=== PATIENT | female | born 1990 | race Caucasian/White ===

== ENCOUNTER 2016-10-01 22:20 | Emergency (ER) | payer SELFPAY ==
[2016-10-01] MEDS ORDERED: Naproxen 500 MG TAB ONE (23:59)
[2016-10-01] MEDS ORDERED: HYDROcodone/Acetaminophen 10/325 mg Tablet ONE (23:59)
[2016-10-02 00:07] LABS: Pregnancy Test - Urine (BHCG) Negative (Negative)
[2016-10-02 00:08] LABS: Bilirubin Negative (Negative); Blood, Urine Large (Negative); Clarity Turbid (Clear); Glucose, Urine (Dipstick) Negative (Negative); Leukocyte Small (Negative); Nitrite Positive (Negative); Pregu Control Background? CLEAR/WHITE (CLR/WHITE); Pregu Control Bar Appear? YES (CONTROL BAR); Protein, Urine (Dipstick) 100 mg/dL (Neg-Trace); RBC/HPF GREATER THAN 50-TNTC HPF (0-3); Specific Gravity 1.028 (1.002-1.036); Specific Gravity, Urine 1.028 (1.005-1.030); Transitional Epithelial 0-3 HPF (0-3); Urobilinogen 0.2 mg/dL (0.2-1.0); WBC/HPF 21-50 HPF (0-3)
[2016-10-02 00:09] LABS: Bacteria/HPF 4+ HPF (None Seen); Yeast-All Forms 2+ HPF (None Seen)
[2016-10-02] MEDS ORDERED: Sulfameth/Trimethoprim DS 800-160mg TAB ONE (00:19)
[2016-10-02] MEDS ORDERED: Phenazopyridine HCl 97.5 MG TABLET ONE (00:19)
== END 2016-10-02 00:21 | disposition home or self-care (01) ==
LOC: MADERS 22:20
DX: N39.0 Urinary tract infection, site not specified (principal); F17.210 Nicotine dependence, cigarettes, uncomplicated
CPT/HCPCS: 36415; 81001; 81025; 87077; 87086; 87186; 99283

== ENCOUNTER 2017-11-19 18:32 | Emergency (ER) | payer OTHER, SELFPAY ==
[2017-11-19 19:06] LABS: Bilirubin Negative (Negative); Blood, Urine Negative (Negative); Clarity Hazy (Clear); Glucose, Urine (Dipstick) Negative (Negative); Leukocyte Negative (Negative); Nitrite Positive (Negative); Protein, Urine (Dipstick) Negative (Neg-Trace); RBC/HPF 0-3 HPF (0-3); Specific Gravity, Urine 1.025 (1.005-1.030); Urobilinogen 0.2 mg/dL (0.2-1.0)
[2017-11-19 19:07] LABS: Bacteria/HPF 4+ HPF (None Seen); Pregnancy Test - Urine (BHCG) Negative (Negative); Pregu Control Background? CLEAR/WHITE (CLR/WHITE); Pregu Control Bar Appear? YES (CONTROL BAR); Specific Gravity 1.025 (1.002-1.036); WBC/HPF 0-3 HPF (0-3)
[2017-11-19 19:24] LABS: Wet Prep Clue Cells Clue Cells Absent (None Seen); Wet Prep Pathologist Review Spermatozoa Absent (None Seen); Wet Prep Spermatozoa 2nd Revie Agree with result (None Seen); Wet Prep Trichomonas Trichomonas Absent (None Seen)
[2017-11-21 23:07] LABS: Chlamydia by PCR DETECTED (NotDetected); GC by PCR Not Detected (NotDetected)
== END 2017-11-19 19:46 | disposition home or self-care (01) ==
LOC: MADERS 18:32
DX: N89.8 Other specified noninflammatory disorders of vagina (principal); N39.0 Urinary tract infection, site not specified; Z87.891 Personal history of nicotine dependence
CPT/HCPCS: 81003; 81015; 81025; 87077; 87086; 87186; 87210; 87491; 87591; 99283

== ENCOUNTER 2017-12-15 18:57 | Emergency (ER) | payer SELFPAY ==
[2017-12-15 19:16] LABS: Bilirubin Negative (Negative); Blood, Urine Negative (Negative); Clarity Hazy (Clear); Glucose, Urine (Dipstick) Negative (Negative); Leukocyte Negative (Negative); Nitrite Negative (Negative); Protein, Urine (Dipstick) Negative (Neg-Trace); Specific Gravity, Urine 1.026 (1.002-1.036); Urobilinogen 0.2 mg/dL (0.2-1.0)
[2017-12-15 19:17] LABS: Pregnancy Test - Urine (BHCG) Negative (Negative); Pregu Control Background? CLEAR/WHITE (CLR/WHITE); Pregu Control Bar Appear? YES (CONTROL BAR); Specific Gravity 1.026 (1.002-1.036)
[2017-12-15] MEDS ORDERED: Ondansetron ODT 4 MG TAB ONE (19:22)
[2017-12-15] MEDS ORDERED: Diphenoxylate HCl/Atropine Tablet ONE (19:22)
== END 2017-12-15 19:30 | disposition home or self-care (01) ==
LOC: MADERS 18:57
DX: R11.2 Nausea with vomiting, unspecified (principal); R19.7 Diarrhea, unspecified; F41.9 Anxiety disorder, unspecified; F17.210 Nicotine dependence, cigarettes, uncomplicated; Z79.899 Other long term (current) drug therapy
CPT/HCPCS: 81003; 81025; 99284; Q0162

== ENCOUNTER 2017-12-31 11:35 | Emergency (ER) | payer SELFPAY ==
[2017-12-31] MEDS ORDERED: predniSONE 20 MG TAB ONE (11:58)
[2017-12-31] MEDS ORDERED: Amoxicillin/Potassium Clav 875 MG TAB ONE (11:58)
[2017-12-31] MEDS ORDERED: Phenergan/Codeine 10-6.25mg/5ml UDCUP ONE (11:58)
== END 2017-12-31 12:12 | disposition home or self-care (01) ==
LOC: MADERS 11:35
DX: J20.9 Acute bronchitis, unspecified (principal); F41.9 Anxiety disorder, unspecified; F17.210 Nicotine dependence, cigarettes, uncomplicated
CPT/HCPCS: 99283; J7506

== ENCOUNTER 2018-01-30 06:14 | Emergency (ER) | payer SELFPAY | END 2018-01-30 06:45 | disposition home or self-care (01) | LOC: MADERS 06:14 | DX: J20.9 Acute bronchitis, unspecified (principal); F41.9 Anxiety disorder, unspecified; F17.210 Nicotine dependence, cigarettes, uncomplicated | CPT/HCPCS: 99283 ==

== ENCOUNTER 2018-05-18 10:12 | Emergency (ER) | payer SELFPAY ==
--- NOTE | 2018-05-18 11:10 | RAD ---
RIGHT ANKLE THREE VIEWS: Date: 05-18-18 History: Ankle sprain. Pain and swelling. FINDINGS: There are two post-operative screws associated with the talus. There appears to be posterior fusion o f the subtalar joint. 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 There is also dorsal corti cated irregularity of the talar neck, suggesting prior trauma. Fractures are seen involving the later al malleolus. No definite acute fracture or dislocation is appreciated. There is soft tissue swelling noted anterior to the ankle joint on the lateral view and along the lateral aspect of the ankle on t he frontal examination inferiorly. 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 No acute fracture or evidence of dislocation. Nonspecific soft tissue swelling seen lat erally and anteriorly. POS: [facility]
== END 2018-05-18 11:29 | disposition home or self-care (01) ==
LOC: MADERS 10:12
DX: S93.401A Sprain of unspecified ligament of right ankle, initial encounter (principal); F17.210 Nicotine dependence, cigarettes, uncomplicated; X50.1XXA Overexertion from prolonged static or awkward postures, initial encounter

== ENCOUNTER 2023-11-20 11:19 | Emergency (ER) | payer SELFPAY ==
[2023-11-20] MEDS ORDERED: Sodium Chloride 0.9% 1,000 ML ONE (11:32)
[2023-11-20 11:58] LABS: #Basophils 0.1 thou/uL (0.0-0.2); #Eosinphils 0.1 thou/uL (0.0-0.7); #Lymphocytes 1.7 thou/uL (1.20-3.40); #Monocytes 0.5 thou/uL (0.11-0.59); %Basophils 0.9 % (0.0-1.0); %Eosinophils 1.4 % (0.0-10.0); %Lymphocytes 23.2 % (21.0-51.0); %Monocytes 6.2 % (0.0-10.0); %Neutrophils 68.3 % (42.0-75.0); Hematocrit 40.4 % (36.0-47.0); Hemoglobin 12.9 g/dL (12.0-16.0); Mean Corpuscular HGB CONC 31.8 g/dL (32.0-36.0); Mean Corpuscular Hemoglobin 28.6 pg (27.0-31.0); Mean Corpuscular Volume 89.9 fl (78.0-98.0); Mean Platelet Volume 6.1 fL (7.4-10.4); Platelet Count 246 10x3/uL (130-400); RBC Distribution Width 14.3 % (11.5-14.5); Red Blood Cell (RBC) Count 4.49 mill/uL (4.20-5.40); White Blood Cell (WBC) Count 7.2 10x3/uL (4.8-10.8)
[2023-11-20 12:00] LABS: Bilirubin Negative (Negative); Blood, Urine Negative (Negative); Glucose, Urine (Dipstick) Negative (Negative); Ketone, Urine Negative (Negative); Leukocyte Small (Negative); Nitrite Negative (Negative); Protein, Urine (Dipstick) Negative (Neg-Trace); Specific Gravity, Urine 1.025 (1.005-1.030); Urobilinogen 0.2 mg/dL (Less than 2)
[2023-11-20 12:01] LABS: Clarity Hazy (Clear)
[2023-11-20 12:03] LABS: BHCG - Serum Negative (NEGATIVE); Pregs Control Background? CLEAR/WHITE (CLR/WHITE); Pregs Control Bar Appear? YES (CONTROL BAR)
[2023-11-20 12:12] LABS: ALT (SGPT) 29 U/L (8-55); AST (SGOT) 22 U/L (5-34); Albumin 3.4 g/dL (3.5-5.0); Alkaline Phosphatase 74 U/L (40-110); Anion Gap 12 mmol/L (10-20); BUN (Urea Nitrogen) 9 mg/dL (7.0-18.7); Bilirubin, Total 0.3 mg/dL (0.2-1.2); Calc. Creatinine Clearance 0 mL/min (70-130); Calcium 8.6 mg/dL (7.8-10.44); Carbon Dioxide 19 mmol/L (22-29); Chloride 113 mmol/L (98-107); Estimated GFR 108; Globulin 3.3 g/dL (2.4-3.5); Glucose 95 mg/dL (70-105); Potassium 3.6 mmol/L (3.5-5.1); Protein, Total 6.7 g/dL (6.0-8.3); Sodium 140 mmol/L (136-145)
[2023-11-20 12:25] LABS: Bacteria/HPF Rare-Few HPF (None Seen); CAUTI Indications for Culture Dysuria,urgency,freq; Mucous/LPF 2+ LPF (<2+); RBC/HPF None Seen HPF (0-3); Urine Culture Reflex Yes Yes; WBC/HPF 21-50 HPF (0-3)
[2023-11-20 12:32] LABS: Influenza A by NAA Not Detected (NotDetected); Influenza B by NAA Not Detected (NotDetected); SARS-CoV-2 NAA Rapid Test Not Detected (NotDetected)
== END 2023-11-20 12:59 | disposition home or self-care (01) ==
LOC: MADERS 11:19
DX: B34.9 Viral infection, unspecified (principal); F17.210 Nicotine dependence, cigarettes, uncomplicated; Z55.6 Problems related to health literacy
CPT/HCPCS: 80053; 81001; 84703; 85025; 87077; 87086; 87186; 99283; J7030

== ENCOUNTER 2024-01-30 14:27 | Emergency (ER) | payer SELFPAY ==
[2024-01-30] MEDS ORDERED: Ondansetron PF 4 MG/2 ML Vial ONE (15:21)
[2024-01-30] MEDS ORDERED: methylPREDNISolone Sod Succ/PF 125 MG/2 ML VIAL ONE (15:21)
[2024-01-30] MEDS ORDERED: Meclizine HCl 25 MG TAB ONE (15:21)
[2024-01-30] MEDS ORDERED: Lactated Ringer's 1,000 ML ONE (15:22)
[2024-01-30 15:29] LABS: #Basophils 0.1 thou/uL (0.0-0.2); #Eosinphils 0.1 thou/uL (0.0-0.7); #Lymphocytes 1.7 thou/uL (1.20-3.40); #Monocytes 0.4 thou/uL (0.11-0.59); #Neutrophils 4.7 thou/uL (1.40-6.50); %Basophils 0.9 % (0.0-1.0); %Eosinophils 1.7 % (0.0-10.0); %Lymphocytes 24.5 % (21.0-51.0); %Monocytes 5.7 % (0.0-10.0); %Neutrophils 67.2 % (42.0-75.0); Hematocrit 35.8 % (36.0-47.0); Hemoglobin 11.7 g/dL (12.0-16.0); Mean Corpuscular HGB CONC 32.6 g/dL (32.0-36.0); Mean Corpuscular Hemoglobin 29.6 pg (27.0-31.0); Mean Corpuscular Volume 90.9 fl (78.0-98.0); Mean Platelet Volume 6.6 fL (7.4-10.4); Platelet Count 223 10x3/uL (130-400); RBC Distribution Width 13.6 % (11.5-14.5); Red Blood Cell (RBC) Count 3.94 mill/uL (4.20-5.40)
[2024-01-30 15:31] LABS: Pregnancy Test - Urine (BHCG) Negative (Negative); Pregu Control Background? CLEAR/WHITE (CLR/WHITE); Pregu Control Bar Appear? YES (CONTROL BAR); Specific Gravity 1.021 (1.002-1.036)
[2024-01-30 15:44] LABS: ALT (SGPT) 17 U/L (8-55); AST (SGOT) 15 U/L (5-34); Albumin 3.1 g/dL (3.5-5.0); Alkaline Phosphatase 78 U/L (40-110); Anion Gap 13 mmol/L (10-20); BUN (Urea Nitrogen) 11 mg/dL (7.0-18.7); Bilirubin, Total 0.2 mg/dL (0.2-1.2); Calc. Creatinine Clearance 0 mL/min (70-130); Calcium 8.5 mg/dL (7.8-10.44); Carbon Dioxide 20 mmol/L (22-29); Chloride 113 mmol/L (98-107); Estimated GFR 115; Globulin 3.2 g/dL (2.4-3.5); Glucose 99 mg/dL (70-105); Potassium 3.7 mmol/L (3.5-5.1); Protein, Total 6.3 g/dL (6.0-8.3); Sodium 142 mmol/L (136-145)
== END 2024-01-30 16:34 | disposition home or self-care (01) ==
LOC: MADERS 14:27
DX: R42 Dizziness and giddiness (principal); F17.290 Nicotine dependence, other tobacco product, uncomplicated
CPT/HCPCS: 80053; 81025; 85025; 93005; 96374; 96375; J2405; J2919; J7120

== ENCOUNTER 2024-06-04 22:13 | Emergency (ER) | payer SELFPAY ==
[2024-06-04] MEDS ORDERED: Dexamethasone 10 MG/ML VIAL ONE (22:56)
[2024-06-04] MEDS ORDERED: Meclizine HCl 25 MG TAB ONE (22:57)
== END 2024-06-04 23:15 | disposition home or self-care (01) ==
LOC: MADERS 22:13
DX: J06.9 Acute upper respiratory infection, unspecified (principal); R29.700 NIHSS score 0; F17.210 Nicotine dependence, cigarettes, uncomplicated; F17.290 Nicotine dependence, other tobacco product, uncomplicated
CPT/HCPCS: 96372; 99283; J1100

== ENCOUNTER 2024-11-27 15:53 | Emergency (ER) | payer SELFPAY | END 2024-11-27 17:40 | disposition home or self-care (01) | LOC: MADERS 15:53 | DX: B34.9 Viral infection, unspecified (principal); K04.7 Periapical abscess without sinus; F17.210 Nicotine dependence, cigarettes, uncomplicated | CPT/HCPCS: 87081; 87426; 87430; 99283 ==